=== PATIENT | male | born 1965 | race Caucasian/White ===

== ENCOUNTER 2020-11-23 19:49 | Emergency (ER) | payer OTHER ==
[~2020-11-23] VITALS: Ht 177.8 cm; Wt 104.3 kg
[~2020-11-23 19:49] MED LIST: ACID REDUCER 1150 MG PO; ALBU90OI61 INH; CLIN150 PO; Cipro500 MG PO; HYDR1TAB94 PO; NAPR550 PO; Norco 10-325 T1 EACH PO; Norco 5-325 Ta1 EACH PO; PRED20 PO; TAMS.4ER PO; TESTONE CI200 MG/1 M IM
== END 2020-11-23 20:08 | disposition home or self-care (01) ==
LOC: ER 19:49
DX: U07.1 COVID-19 (principal); Z79.899 Other long term (current) drug therapy; Z87.891 Personal history of nicotine dependence
CPT/HCPCS: 99285

== ENCOUNTER 2022-04-25 11:55 | Day surgery (SDC) | payer OTHER ==
[~2022-04-25] VITALS: Ht 177.8 cm; Wt 96.8 kg
[~2022-04-25 11:55] MED LIST changes: +ANASTROZOLE1 M7 PO; +ASPI81CH PO; +EUTHYROX50 MCG PO; +OMEP20ER PO; +TESTOSTERO200 MG/1 M IM
--- NOTE | 2022-04-25 15:42 | NUR ---
Discharge instructions reviewed with patient. Patient verbalizes understanding. Copy given to patient to take home. Dressing to procedure site clean, dry, intact with no visible drainage, swelling, erythema or bruising noted.
--- NOTE | 2022-04-25 15:56 | NUR ---
Discharged via wheelchair to private car for ride home.
== END 2022-04-25 15:58 | disposition home or self-care (01) ==
LOC: ORSCMMR 11:55 → ORD 15:00 → ORSCMMR 15:58 → ORSCSDS 04-27 07:30
PROVIDERS: Podiatrist Foot & Ankle Surgery
PROC: 0SPF04Z Removal of Internal Fixation Device from Right Ankle Joint, Open Approach (ICD-10-PCS; principal; 2022-04-25 13:30)
DX: T84.84XA Pain due to internal orthopedic prosthetic devices, implants and grafts, initial encounter (principal); M25.571 Pain in right ankle and joints of right foot; M79.671 Pain in right foot; E03.9 Hypothyroidism, unspecified; F41.9 Anxiety disorder, unspecified; F43.10 Post-traumatic stress disorder, unspecified; Z79.899 Other long term (current) drug therapy
CPT/HCPCS: A9270; J0690; J1100; J2250; J2405; J2704; J2795; J3010; J7120

== ENCOUNTER 2022-09-19 19:17 | Emergency (ER) | payer OTHER ==
[~2022-09-19] VITALS: Ht 177.8 cm; Wt 97.5 kg
[2022-09-19 19:58] LABS: BASOPHILS ABSOLUTE AUTO 0.04 K/mm3 (0.00-0.23); BASOPHILS PERCENT AUTO 0 % (0-2); EOSINOPHILS ABSOLUTE AUTO 0.12 K/mm3 (0.00-0.68); EOSINOPHILS PERCENT AUTO 1 % (0-6); Hematocrit 46.9 % (37.0-53.0); Hemoglobin 16.2 g/dL (13.5-17.5); IMMATURE GRAN ABSOLUTE AUTO 0.07 K/mm3 (0.00-0.10); IMMATURE GRAN PERCENT AUTO 1 % (0-1); LYMPHOCYTES ABSOLUTE AUTO 1.94 K/mm3 (0.84-5.20); LYMPHOCYTES PERCENT AUTO 17 % (21-46); MONOCYTES ABSOLUTE AUTO 0.89 K/mm3 (0.16-1.47); MONOCYTES PERCENT AUTO 8 % (4-13); Mean Corpuscular HGB 30.1 pg (26.0-34.0); Mean Corpuscular HGB Conc 34.5 g/dL (31.5-36.5); Mean Corpuscular Volume 87 fL (80-100); Mean Platelet Volume 10.8 fL (9.1-12.4); NEUTROPHILS ABSOLUTE AUTO 8.37 K/mm3 (1.96-9.15); NEUTROPHILS PERCENT AUTO 73 % (41-73); Platelet Count 304 K/mm3 (150-400); RDW Coefficient Variation 13.5 % (11.7-14.2); RDW Standard Deviation 42.9 fL (35.1-46.3); Red Blood Cell Count 5.39 M/mm3 (4.30-5.90); White Blood Cell Count 11.43 K/mm3 (4.00-11.30)
[2022-09-19 20:30] LABS: Albumin/Globulin Ratio 1.1 (0.8-1.8); Bilirubin, Total 0.4 mg/dL (0.1-1.0); Bun/Creatinine Ratio 13.6 (12.0-20.0); Calcium, Blood 9.2 mg/dL (8.5-10.1); Creatinine, Blood 1.1 mg/dL (0.60-1.20); Globulin, Blood 3.6 g/dL (2.2-4.0); Potassium, Blood 3.5 mmol/L (3.5-5.5); Total Protein, Blood 7.6 g/dL (6.4-8.2)
[2022-09-19 23:00] VITALS: BP 126/80
== END 2022-09-19 23:33 | disposition home or self-care (01) ==
LOC: ER 19:17
PROVIDERS: Physician Assistant
DX: R10.13 Epigastric pain (principal); K43.9 Ventral hernia without obstruction or gangrene; E03.9 Hypothyroidism, unspecified; N40.0 Benign prostatic hyperplasia without lower urinary tract symptoms; Z79.82 Long term (current) use of aspirin; Z79.890 Hormone replacement therapy; Z79.899 Other long term (current) drug therapy; Z88.1 Allergy status to other antibiotic agents; Z87.891 Personal history of nicotine dependence; Z96.651 Presence of right artificial knee joint
CPT/HCPCS: 74177; 76857; 80053; 85025; J1885; J2270; Q9967

== ENCOUNTER → 2024-03-31 | Outpatient (CLI) | payer MEDICARE, OTHER ==
[~2024-03-31] MED LIST changes: +OMEP20ER; +TADALAFIL20 M1 PO; +TAMSULOSIN HCL0.4 M1 PO
[2024-03-31 18:11] LABS: BASOPHILS ABSOLUTE AUTO 0.05 K/mm3 (0.00-0.23); BASOPHILS PERCENT AUTO 1 % (0-2); EOSINOPHILS ABSOLUTE AUTO 0.14 K/mm3 (0.00-0.68); EOSINOPHILS PERCENT AUTO 2 % (0-6); Hematocrit 43.6 % (37.0-53.0); Hemoglobin 14.4 g/dL (13.5-17.5); IMMATURE GRAN ABSOLUTE AUTO 0.03 K/mm3 (0.00-0.10); IMMATURE GRAN PERCENT AUTO 0 % (0-1); LYMPHOCYTES PERCENT AUTO 18 % (21-46); MONOCYTES ABSOLUTE AUTO 0.73 K/mm3 (0.16-1.47); MONOCYTES PERCENT AUTO 9 % (4-13); Mean Corpuscular HGB 29.4 pg (26.0-34.0); Mean Corpuscular Volume 89 fL (80-100); Mean Platelet Volume 10.3 fL (9.1-12.4); NEUTROPHILS ABSOLUTE AUTO 5.89 K/mm3 (1.96-9.15); NEUTROPHILS PERCENT AUTO 71 % (41-73); Platelet Count 321 K/mm3 (150-400); RDW Coefficient Variation 14.2 % (11.7-14.2); RDW Standard Deviation 46.2 fL (35.1-46.3); White Blood Cell Count 8.34 K/mm3 (4.00-11.30)
[2024-03-31 18:24] LABS: Albumin, Blood 3.6 g/dL (3.4-5.0); Albumin/Globulin Ratio 0.9 (0.8-1.8); Bilirubin, Total 0.3 mg/dL (0.1-1.0); Bun/Creatinine Ratio 14.6 (12.0-20.0); Calcium, Blood 8.9 mg/dL (8.5-10.1); Creatinine, Blood 1.3 mg/dL (0.60-1.20); Globulin, Blood 3.8 g/dL (2.2-4.0); Total Protein, Blood 7.4 g/dL (6.4-8.2)
== END ==
LOC: LAB 17:53 → LAB SHORT 17:53
PROVIDERS: Chiropractor
DX: N39.0 Urinary tract infection, site not specified (principal)
CPT/HCPCS: 80053; 85025; 87077; 87086; 87186

== ENCOUNTER → 2024-04-13 | Outpatient (CLI) | payer MEDICARE, OTHER | LOC: LAB 18:05 → LAB SHORT 18:05 | DX: N39.0 Urinary tract infection, site not specified (principal) | CPT/HCPCS: 87077; 87086; 87186 ==

== ENCOUNTER → 2024-05-06 | Outpatient (CLI) | payer MEDICARE, OTHER | LOC: LAB 17:11 → LAB SHORT 17:11 | DX: N39.0 Urinary tract infection, site not specified (principal) | CPT/HCPCS: 87086 ==